=== PATIENT | female | born 1985 | race Hispanic/Latino ===

== ENCOUNTER 2017-10-25 05:08 | Emergency (ER) | payer OTHER ==
[~2017-10-25] VITALS: Ht 152.4 cm; Wt 105.0 kg
[~2017-10-25 05:08] MED LIST: CEPHALEXIN500 MG PO
[2017-10-25 06:17] LABS: INFLUENZA A NONE DETECTED (NONE DETECT); INFLUENZA B NONE DETECTED (NONE DETECT)
[2017-10-25] MEDS ORDERED: GENTAMICIN0.3 % OU (06:54)
[2017-10-25] MEDS ORDERED: CODEINE/GUAIFEN1 SOL PO (06:54)
[2017-10-25 07:21] VITALS: BP 116/80
[2017-10-26] MEDS ORDERED: CIPROFLOXACN500 MG PO (18:49)
[2017-10-26] MEDS ORDERED: TRAMADOL HCL50 MG PO (18:49)
[2017-10-26] MEDS ORDERED: METRONIDAZOL500 MG PO (18:49)
== END 2017-10-25 07:21 | disposition home or self-care (01) | DRG 153 ==
LOC: ED 05:08
PROVIDERS: Emergency Medicine
DX: J06.9 Acute upper respiratory infection, unspecified (principal); H10.9 Unspecified conjunctivitis

== ENCOUNTER 2017-10-26 13:29 | Emergency (ER) | payer OTHER ==
[~2017-10-26] VITALS: Ht 152.4 cm; Wt 231.0 kg
[~2017-10-26 13:29] MED LIST changes: +CODEINE/GUAIFEN1 SOL PO; +GENTAMICIN0.3 % OU
[2017-10-26 14:44] LABS: HEMATOCRIT 35.9 % (37.0-47.0); HEMOGLOBIN 10.8 g/dl (12.0-16.0); IMMATURE GRANULOCYTES 0.6 % (0.0-1.0); MEAN CELL VOLUME 72.5 fL CALC (80.0-100.0); MEAN CORPUSCULAR HGB 21.8 pG CALC (26.0-32.0); MEAN CORPUSCULAR HGB CONC 30.1 g/L CALC (32.0-36.0); NEUT# 11.81 thou/uL (2.00-7.15); RED BLOOD COUNT 4.95 mill/uL (4.20-5.60); RED CELL DISTRI WIDTH 15.7 % (11.5-15.5)
[2017-10-26 14:56] LABS: URINE BILIRUBIN - DIPSTICK NEGATIVE (NEGATIVE); URINE BLOOD DIPSTICK TRACE-INTACT (NEGATIVE); URINE COLOR YELLOW; URINE GLUCOSE - DIPSTICK NEGATIVE (NEGATIVE); URINE KETONE NEGATIVE (NEGATIVE); URINE NITRITE - DIPSTICK NEGATIVE (Negative); URINE PROTEIN - DIPSTICK NEGATIVE (NEG-TRACE); URINE SPECIFIC GRAVITY 1.015; URINE UROBILINOGEN - DIPSTICK 0.2 E.U./dL (0.2)
[2017-10-26 14:59] LABS: URINE LEUK ESTERASE MODERATE (NEGATIVE)
[2017-10-26 15:00] LABS: URINE CLARITY SL CLOUDY
[2017-10-26 15:02] LABS: ALBUMIN 4.4 g/dL (3.2-5.0); ALKALINE PHOSPHATASE 108 u/l (38-126); AMYLASE 59 u/l (30-110); ANION GAP 20 (6-22 (CALC)); BILIRUBIN, TOTAL 0.6 mg/dL (0.0-1.4); BUN 7 mg/dL (7-17); BUN/CREATININE RATIO 10 (12-20 (CALC)); CARBON DIOXIDE 26 mmol/l (22-30); CHLORIDE 100 mmol/l (95-108); CREATININE 0.8 mg/dL (0.5-1.0); GFR > 60 ML/MIN (>=60 (CALC)); GFR FOR AFR.AMER. > 60 ML/MIN (>=60 (CALC)); LIPASE 30 u/l (23-300); POTASSIUM 4.4 mmol/l (3.5-5.1); SGOT/AST 16 u/l (14-36); SGPT/ALT 32 u/l (9-52); SODIUM 142 mmol/l (137-146); TOTAL PROTEIN 8.4 g/dL (6.3-8.2)
[2017-10-26 15:09] LABS: URINE BACTERIA FEW hpf; URINE SQUAMOUS EPITHELIAL CELL FEW EPI/hpf (0-FEW)
[2017-10-26] MEDS ORDERED: METRONIDAZOL500 MG PO (18:49)
[2017-10-26] MEDS ORDERED: CIPROFLOXACN500 MG PO (18:49)
[2017-10-26] MEDS ORDERED: TRAMADOL HCL50 MG PO (18:49)
[2017-10-26 19:17] VITALS: BP 95/62
== END 2017-10-26 19:25 | disposition home or self-care (01) | DRG 690 ==
LOC: ED 13:29
PROVIDERS: Family Medicine
DX: N39.0 Urinary tract infection, site not specified (principal); B96.4 Proteus (mirabilis) (morganii) as the cause of diseases classified elsewhere; R10.31 Right lower quadrant pain; R10.32 Left lower quadrant pain